=== PATIENT | female | born 1950 | race Two or more races ===

== ENCOUNTER 2024-05-22 14:28 | Emergency (ER) | payer OTHER ==
[~2024-05-22] VITALS: Ht 152.4 cm; Wt 84.4 kg
[2024-05-22] MEDS ORDERED: HYZAAR 100-12.1 EACH PO (14:33)
[2024-05-22] MEDS ORDERED: LEVOTHYROXINE25 MCG PO (14:34)
[2024-05-22 17:39] LABS: HEMOGLOBIN 15.7 g/dL (12.0-15.00); MEAN CELL VOLUME 90.8 fL (80.00-100.00); MEAN CORPUSCULAR HEMOGLOBIN 30.4 pg (27.00-32.0); MEAN CORPUSCULAR HGB CONC 33.5 g/dl (32.0-36.0); PLATELET COUNT 255 K/uL (150-450); RED BLOOD COUNT 5.18 M/uL (4.00-6.00); RED CELL DISTRIBUTION WIDTH 13.2 % (11.5-14.5)
[2024-05-22 18:12] LABS: ALBUMIN 4.2 gm/dL (3.4-5.0); BILIRUBIN TOTAL 1.05 mg/dL (0.3-1.2); CREATININE SERUM 1.38 mg/dL (0.55-1.02); GFR 37.27; POTASSIUM 3.7 mEq/L (3.5-5.1); TOTAL PROTEIN 8.2 gm/dL (6.4-8.2)
[2024-05-22] MEDS ORDERED: INTESTINEX680 M1 PO (18:24)
[2024-05-22] MEDS ORDERED: DICY20TA PO (18:24)
== END 2024-05-22 18:51 | disposition home or self-care (01) ==
LOC: ER 14:28
PROVIDERS: General Practice
DX: R10.32 Left lower quadrant pain (principal); R10.9 Unspecified abdominal pain

== ENCOUNTER 2024-06-26 11:44 | Inpatient (IN) | payer OTHER ==
[~2024-06-26] VITALS: Ht 152.4 cm; Wt 83.0 kg
[~2024-06-26 11:44] MED LIST: DICY20TA PO; HYZAAR 100-12.1 EACH PO; INTESTINEX680 M1 PO; LEVOTHYROXINE25 MCG PO
[2024-06-26] MEDS ORDERED: NORVASC5 MG PO (12:35)
[2024-07-04] MEDS ORDERED: CEFTRIAXONE SODIUM 2,000 MG VIAL ONE (11:29)
[2024-07-04] MEDS ORDERED: LIDOCAINE HCL 1%/EPINEPHRINE 20ML VIAL IJ ONE ×2 (11:29→11:53)
[2024-07-04] MEDS ORDERED: METRONIDAZOLE/SODIUM CHLORIDE 500 MG/100 ML PIGGYBACK IV ONE (11:29)
[2024-07-04] MEDS ORDERED: BUPIVACAINE HCL/MPF 0.5% 30ML VIAL ONE ×2 (11:29→11:53)
[2024-07-04] MEDS ORDERED: RINGERS SOLUTION,LACTATED 1,000 ML IV SCH (13:45)
[2024-07-04] MEDS ORDERED: MORPHINE SULFATE 4 MG/ML CARTRIDGE IV PRN (13:45)
[2024-07-04] MEDS ORDERED: ONDANSETRON HCL 2 MG/ML VIAL IV PRN (13:45)
[2024-07-04] MEDS ORDERED: OxyCODONE HCL 5 MG TABLET (ROXICODONE) PO PRN (13:45)
[2024-07-04] MEDS ORDERED: DEXTROSE 50 % IN WATER 0.5 G/ML DISP.SYRIN IV PRN (13:45)
[2024-07-04] MEDS ORDERED: ACETAMINOPHEN 500 MG GEL..CAP PO SCH (14:00)
[2024-07-04] MEDS ORDERED: MORPHINE SULFATE 4 MG/ML VIAL IV ONE ×2 (14:15→15:00)
[2024-07-04 16:00] VITALS: BP 77/41; O2SAT 93
[2024-07-04] MEDS ORDERED: HYOSCYAMINE SULFATE 0.125 MG TAB.SUBL SL SCH (17:00)
[2024-07-04] MEDS ORDERED: POLYETHYLENE GLYCOL 3350 17 GM BLIST.PACK PO SCH (17:00)
[2024-07-04] MEDS ORDERED: GABAPENTIN 300 MG CAPSULE PO SCH (17:00)
[2024-07-04 17:13] LABS: HEMATOCRIT 42.4 % (36.0-45.00); HEMOGLOBIN 14.4 g/dL (12.0-15.00); MEAN CELL VOLUME 89.3 fL (80.00-100.00); MEAN CORPUSCULAR HEMOGLOBIN 30.3 pg (27.00-32.0); MEAN CORPUSCULAR HGB CONC 33.9 g/dl (32.0-36.0); PLATELET COUNT 215 K/uL (150-450); RED BLOOD COUNT 4.75 M/uL (4.00-6.00); RED CELL DISTRIBUTION WIDTH 13.5 % (11.5-14.5)
[2024-07-04] MEDS ORDERED: ENALAPRILAT DIHYDRATE 1.25 MG/ML VIAL IV PRN (17:30)
[2024-07-04 17:39] LABS: ALBUMIN 3.8 gm/dL (3.4-5.0); CALCIUM 8.9 mg/dL (8.5-10.1); CREATININE SERUM 0.82 mg/dL (0.55-1.02); GFR 67.96; MAGNESIUM 1.6 mg/dL (1.8-2.4); PHOSPHOROUS 3.1 mg/dL (2.5-4.9); POTASSIUM 3.8 mEq/L (3.5-5.1)
[2024-07-04 18:00] VITALS: BP 148/85; O2SAT 96
[2024-07-04] MEDS ORDERED: FAMOTIDINE/PF 20 MG/2 ML VIAL IV PUSH SCH (21:00)
[2024-07-05] MEDS ORDERED: PATIENTS OWN MEDICATION (MEDICAMENTO EN PISO) PO SCH (06:00)
[2024-07-05 07:12] LABS: HEMATOCRIT 42.7 % (36.0-45.00); MEAN CELL VOLUME 90.4 fL (80.00-100.00); MEAN CORPUSCULAR HEMOGLOBIN 29.6 pg (27.00-32.0); MEAN CORPUSCULAR HGB CONC 32.7 g/dl (32.0-36.0); PLATELET COUNT 237 K/uL (150-450); RED BLOOD COUNT 4.73 M/uL (4.00-6.00); RED CELL DISTRIBUTION WIDTH 13.2 % (11.5-14.5)
[2024-07-05 08:03] LABS: ALBUMIN 3.3 gm/dL (3.4-5.0); CALCIUM 8.4 mg/dL (8.5-10.1); CREATININE SERUM 0.67 mg/dL (0.55-1.02); GFR 85.8; MAGNESIUM 1.8 mg/dL (1.8-2.4); PHOSPHOROUS 3.1 mg/dL (2.5-4.9); POTASSIUM 4.17 mEq/L (3.5-5.1)
[2024-07-05 08:32] VITALS: BP 131/75; O2SAT 95
[2024-07-05] MEDS ORDERED: LOSARTAN POTASSIUM 100 MG TABLET PO SCH (09:00)
[2024-07-05] MEDS ORDERED: LACTULOSE 20 G/30 ML BLIST.PACK PO SCH (09:00)
[2024-07-05] MEDS ORDERED: HYDROCHLOROTHIAZIDE 12.5 MG CAPSULE PO SCH (09:00)
[2024-07-05] MEDS ORDERED: AMLODIPINE BESYLATE 5 MG TABLET PO SCH (09:00)
[2024-07-05 16:00] VITALS: BP 120/81; O2SAT 96
[2024-07-05] MEDS ORDERED: ENOXAPARIN SODIUM 40 MG/0.4 ML SYRINGE SUBCUTANEO SCH (17:00)
[2024-07-06] VITALS: BP 156/82; O2SAT 95
[2024-07-06 07:19] LABS: HEMATOCRIT 40.8 % (36.0-45.00); HEMOGLOBIN 13.5 g/dL (12.0-15.00); MEAN CELL VOLUME 90.6 fL (80.00-100.00); MEAN CORPUSCULAR HGB CONC 33.2 g/dl (32.0-36.0); PLATELET COUNT 196 K/uL (150-450); RED BLOOD COUNT 4.51 M/uL (4.00-6.00); RED CELL DISTRIBUTION WIDTH 13.2 % (11.5-14.5)
[2024-07-06 07:57] LABS: CALCIUM 8.9 mg/dL (8.5-10.1); CREATININE SERUM 0.78 mg/dL (0.55-1.02); MAGNESIUM 1.7 mg/dL (1.8-2.4); PHOSPHOROUS 2.2 mg/dL (2.5-4.9); POTASSIUM 3.65 mEq/L (3.5-5.1)
[2024-07-06 08:00] VITALS: BP 158/85; O2SAT 95
[2024-07-06] MEDS ORDERED: ENOXAPARIN SODIUM 40 MG/0.4 ML SYRINGE SUBCUTANEO SCH (09:00)
[2024-07-06] MEDS ORDERED: POTASSIUM PHOS,M-BASIC-D-BASIC 3 MM/ML VIAL IV NR (10:00)
[2024-07-06] MEDS ORDERED: MAGNESIUM SULFATE IN WATER 50 ML IV NR (10:00)
[2024-07-06] MEDS ORDERED: PANTOPRAZOLE SODIUM 40 MG/VIAL VIAL IV STA (11:58)
[2024-07-06] MEDS ORDERED: TRAMADOL HCL 50 MG TABLET PO PRN (12:00)
[2024-07-06 16:26] VITALS: BP 118/91; O2SAT 97
[2024-07-07] VITALS: BP 147/84; O2SAT 95
[2024-07-07] MEDS ORDERED: PANTOPRAZOLE SODIUM 40 MG/VIAL VIAL IV SCH (06:00)
[2024-07-07 07:08] LABS: HEMATOCRIT 39.6 % (36.0-45.00); HEMOGLOBIN 13.6 g/dL (12.0-15.00); MEAN CELL VOLUME 88.7 fL (80.00-100.00); MEAN CORPUSCULAR HEMOGLOBIN 30.5 pg (27.00-32.0); MEAN CORPUSCULAR HGB CONC 34.4 g/dl (32.0-36.0); PLATELET COUNT 213 K/uL (150-450); RED BLOOD COUNT 4.46 M/uL (4.00-6.00); RED CELL DISTRIBUTION WIDTH 13.4 % (11.5-14.5)
[2024-07-07 08:19] LABS: CALCIUM 8.6 mg/dL (8.5-10.1); CREATININE SERUM 0.67 mg/dL (0.55-1.02); GFR 85.8; MAGNESIUM 2.2 mg/dL (1.8-2.4); PHOSPHOROUS 2.7 mg/dL (2.5-4.9); POTASSIUM 3.77 mEq/L (3.5-5.1)
[2024-07-07 08:47] VITALS: BP 127/85; O2SAT 97
[2024-07-07] MEDS ORDERED: METOCLOPRAMIDE HCL 5 MG/ML VIAL IV SCH (13:00)
[2024-07-07 16:50] VITALS: BP 140/69
[2024-07-08 02:11] VITALS: BP 151/77; O2SAT 91
[2024-07-08 10:04] VITALS: BP 138/93; O2SAT 95
[2024-07-08] MEDS ORDERED: INTESTINEX680 M1 PO (12:17)
[2024-07-08] MEDS ORDERED: LEVSIN/SL0.125 MG SL (12:18)
[2024-07-08] MEDS ORDERED: METOCLOPRAMIDE10 MG PO (12:18)
[2024-07-08] MEDS ORDERED: NEURONTIN300 MG PO (12:18)
== END 2024-07-08 13:39 | disposition home or self-care (01) | DRG 330 ==
LOC: O/R 07-04 05:10 → SURG 07-04 05:10 → SURH 07-04 09:45 → SURG 07-04 15:38
PROVIDERS: Internal Medicine Geriatric Medicine; ADMIT Surgery; ATTEND Surgery
PROC: 0DBP4ZZ Excision of Rectum, Percutaneous Endoscopic Approach (ICD-10-PCS; 2024-07-04)
PROC: 0DJD8ZZ Inspection of Lower Intestinal Tract, Via Natural or Artificial Opening Endoscopic (ICD-10-PCS; 2024-07-04)
PROC: 0DTN4ZZ Resection of Sigmoid Colon, Percutaneous Endoscopic Approach (ICD-10-PCS; principal; 2024-07-04 09:45)
DX: K57.20 Diverticulitis of large intestine with perforation and abscess without bleeding (principal); N82.3 Fistula of vagina to large intestine; I11.9 Hypertensive heart disease without heart failure; E03.9 Hypothyroidism, unspecified